=== PATIENT | male | born 1960 | race Caucasian/White ===

== ENCOUNTER 2018-12-04 07:17 | Day surgery (SDC) | payer MEDICAID ==
[2018-12-04] VITALS (10 sets, daily range): BP systolic 122–144; BP diastolic 73–88
[~2018-12-04] VITALS: Ht 162.6 cm; Wt 73.8 kg
[2018-12-04] MEDS ORDERED: diphenhydrAMINE 25mg capsule PO PRN (07:55)
[2018-12-04] MEDS ORDERED: normal saline 1,000 ML IV SCH (07:55)
[2018-12-04 08:24] LABS: EOSINOPHILS # (AUTO) 0.5 X10'3 (0-0.9); MEAN PLATELET VOLUME 7.7 FL (7.4-10.4)
[2018-12-04 08:26] LABS: BASOPHILS # (AUTO) 0.1 X10'3 (0-0.2); EOSINOPHILS % (AUTO) 5.8 % (0-6); HEMATOCRIT 43.4 % (42.0-52.0); LYMPHOCYTES % (AUTO) 22.7 % (21-51); MEAN CORPUSCULAR HEMOGLOBIN 30.5 PG (27.0-31.0); MEAN CORPUSCULAR HGB CONC 32.3 g/dL (33.0-36.5); MEAN CORPUSCULAR VOLUME 94.4 FL (78-98); MONOCYTES # (AUTO) 0.8 X10'3 (0-0.9); MONOCYTES % (AUTO) 8.5 % (2-12); NEUTROPHILS # (AUTO) 5.6 X10'3 (1.8-7.7); PLATELET COUNT 296 X10'3 (140-440); RED BLOOD COUNT 4.59 X10'6 (4.70-6.10); RED CELL DISTRIBUTION WIDTH 17.1 % (11.5-14.5)
[2018-12-04 08:37] LABS: ALBUMIN 3.7 G/DL (3.4-5.0); ANION GAP 10 (8-16); BLOOD UREA NITROGEN 66 MG/DL (7-18); BUN/CREATININE RATIO 7.4 (5.4-32.0); CALCIUM 10.1 MG/DL (8.5-10.1); CHLORIDE 102 MMOL/L (99-107); CREATININE 8.95 MG/DL (0.60-1.10); GLUCOSE 83 MG/DL (70-104); MAGNESIUM 3.1 MG/DL (1.5-2.4); POTASSIUM 5.6 MMOL/L (3.5-5.1); SODIUM 138 MMOL/L (135-145); TOTAL CARBON DIOXIDE 25.9 MMOL/L (24-32); eGFR 6 ML/MIN
[2018-12-04] MEDS ORDERED: SEVE800T8 PO (09:08)
[2018-12-04] MEDS ORDERED: ATOR-2 PO (09:08)
[2018-12-04] MEDS ORDERED: CARV25TA PO (09:08)
[2018-12-04] MEDS ORDERED: ASPI-1264 PO (09:08)
[2018-12-04] MEDS ORDERED: ONDA8TAB13 PO (09:08)
[2018-12-04] MEDS ORDERED: NIFE60TA18 PO (09:08)
[2018-12-04] MEDS ORDERED: HYDR25SU7 RC (09:08)
[2018-12-04] MEDS ORDERED: LIDOcaine 1% (10mg/ml)w/preservative injection 20ml MDV ONE (09:12)
[2018-12-04] MEDS ORDERED: midazolam 2 mg/2 ml injection ONE (09:12)
[2018-12-04] MEDS ORDERED: iohexol 350MG/ML 100ml bottle IV ONE ×2 (09:12→10:00)
[2018-12-04] MEDS ORDERED: fentaNYL/PF 50MCG/1 ML 2ML syringe ONE (09:12)
[2018-12-04] MEDS ORDERED: clopidogrel 300mg tablet ONE (10:00)
[2018-12-04] MEDS ORDERED: heparin 1,000unit/ml 10ml vial 10 ML ONE (10:00)
[2018-12-04] MEDS ORDERED: pneumococcal 23-VAL P-sac vacc 25 mcg/0.5ml vial IMVAC ONE (10:10)
== END 2018-12-04 14:30 | disposition home or self-care (01) ==
LOC: SSTAY O 07:17
PROVIDERS: ATTEND Internal Medicine Cardiovascular Disease
DX: I25.10 Atherosclerotic heart disease of native coronary artery without angina pectoris (principal); I31.3 Pericardial effusion (noninflammatory); I10 Essential (primary) hypertension; E78.5 Hyperlipidemia, unspecified; E11.9 Type 2 diabetes mellitus without complications
CPT/HCPCS: 36415; 80048; 83735; 85025; 85610; 90732; 93458; 99152; 99153; A6257; C1725; C1760; C1769; C1874; C1894; C9600; C9601; J1644; J2001; J2250; J3010; J7030; Q0163; Q9967; A4620